=== PATIENT | male | born 1955 | race Caucasian/White ===

== ENCOUNTER 2016-11-30 06:36 | Day surgery (SDC) | payer BC, OTHER ==
[~2016-11-30] VITALS: Ht 172.7 cm; Wt 82.7 kg
[~2016-11-30 06:36] MED LIST: ASPIRIN 81M81 MG/TA2 PO; CARDI-OMEGA1000 MG PO; CRESTOR20 MG PO; NEXIUM 20MG CAP20 MG PO; NO HOME MEDICATIONS; NORCO 325 MG-51 TAB PO; PEPCID AC20 MG PO; PRILOSEC 20MG20 MG PO; STATIN; XANAX 0.5MG0.5 MG PO; [UNRECOGNIZED DRUG - OTHER]
[2016-11-30 07:08] VITALS: BP 122/73; PULSE 68; TEMP 97.6
[2016-11-30] MEDS ORDERED: ASPIRIN E.C. 8181 MG PO (07:11)
[2016-11-30] MEDS ORDERED: TEMOVATE OINT30 GM TOP (07:12)
[2016-11-30] MEDS ORDERED: PLAVIX 75MG TAB75 MG PO (07:12)
[2016-11-30 08:25] VITALS: BP 112/66; PULSE 64; TEMP 98
[2016-11-30 08:40] VITALS: BP 97/68; PULSE 62
[2016-11-30 08:55] VITALS: BP 108/64; PULSE 68
[2016-11-30 11:46] VITALS: BP 95/59; PULSE 52
== END 2016-11-30 09:01 | disposition home or self-care (01) ==
LOC: SDCO 06:36
DX: Z12.11 Encounter for screening for malignant neoplasm of colon (principal); D12.2 Benign neoplasm of ascending colon; D12.8 Benign neoplasm of rectum; K57.30 Diverticulosis of large intestine without perforation or abscess without bleeding; Z86.010 Personal history of colon polyps; K21.9 Gastro-esophageal reflux disease without esophagitis; E78.1 Pure hyperglyceridemia; Z79.02 Long term (current) use of antithrombotics/antiplatelets
CPT/HCPCS: J2250; J3010; J7030

== ENCOUNTER → 2018-07-31 | Outpatient (CLI) | payer BC, OTHER ==
[~2018-07-31] MED LIST changes: +ASPIRIN E.C. 8181 MG PO; +PLAVIX 75MG TAB75 MG PO; +TEMOVATE OINT30 GM TOP
== END ==
LOC: MC.RAD 10:27
DX: N63.10 Unspecified lump in the right breast, unspecified quadrant (principal); R92.8 Other abnormal and inconclusive findings on diagnostic imaging of breast

== ENCOUNTER → 2018-09-19 | Outpatient (CLI) | payer BC, OTHER ==
[~2018-09-19] VITALS: Ht 172.7 cm; Wt 85.6 kg
[2018-09-19] VITALS (10 sets, daily range): BP systolic 130–149; BP diastolic 77–92; PULSE 55–69
[2018-09-19 07:01] LABS: PROTHROMBIN TIME 10.9 SECONDS (9.7-12.8)
--- NOTE | 2018-09-19 08:35 | NUR ---
PT WAS TAKEN TO ULTRASOUND AND MONITORING EQUIPMENT PLACED ON PT. PT IS SB WITH OCCASSIONAL PVC.
--- NOTE | 2018-09-19 08:40 | NUR ---
PT WILMER WELL. TOLERATES PROCEDURE WELL.
--- NOTE | 2018-09-19 08:45 | NUR ---
PT DOING WELL. NO PAIN
--- NOTE | 2018-09-19 08:50 | NUR ---
PROCEDURE DONE. PT BROUGHT BACK TO ROOM. VS TAKEN.
--- NOTE | 2018-09-19 09:20 | NUR ---
PT DOING WELL
--- NOTE | 2018-09-19 09:20 | NUR ---
PT IS DOING WELL. IS GOING HOME AND WILL RETURN AT 1100. VSS. PT HAS ONLY TENDERNESS TO SITE, SITE HAS A SMALL AMT OF BLOOD ON BANDAIDE. PT GIVEN COFFEE. SPECIMEN TAKEN TO LAB
--- NOTE | 2018-09-19 09:50 | NUR ---
PT IS DOING WELL. SITE IS TENDER AND NO CHANGE IN BANDAIDE.
--- NOTE | 2018-09-19 10:20 | NUR ---
PT IS RESTING WITH HIS EYES CLOSED, RESP EVEN AND NON LABORED. COFFEE IS GONE.
--- NOTE | 2018-09-19 10:55 | NUR ---
PT AND WERE TAKEN TO LOBBY AND LFET IN V
== END ==
LOC: COL.RAD 06:07
DX: K21.9 Gastro-esophageal reflux disease without esophagitis (principal); K63.5 Polyp of colon; R74.8 Abnormal levels of other serum enzymes

== ENCOUNTER 2020-11-18 06:07 | Day surgery (SDC) | payer BC, OTHER ==
[~2020-11-18] VITALS: Ht 172.7 cm; Wt 84.8 kg
[~2020-11-18 06:07] MED LIST changes: +PROTONIX20 MG PO
[2020-11-18] MEDS ORDERED: NORVASC 10MG10 MG PO (06:29)
[2020-11-18 06:53] VITALS: BP 114/87; PULSE 74; TEMP 97.7
[2020-11-18 07:50] VITALS: BP 113/78; PULSE 63; TEMP 97.3
--- NOTE | 2020-11-18 07:50 | NUR ---
pt to bay [facility] via cart from [facility], pt walked to chair, gait stable. in room, call light in reach, pt had coffee and snack
[2020-11-18 08:05] VITALS: BP 133/81; PULSE 61
--- NOTE | 2020-11-18 08:05 | NUR ---
into see pt and
[2020-11-18 08:20] VITALS: BP 125/91; PULSE 62
--- NOTE | 2020-11-18 08:20 | NUR ---
reviewed discharge inst. with pt and on moderate sedaion, precautions, and polyp removal, iv d'cd intact. pt up in room dressed
--- NOTE | 2020-11-18 08:35 | NUR ---
pt discharged via w/c to car
== END 2020-11-18 08:35 | disposition home or self-care (01) ==
LOC: SDCO 06:07
DX: Z12.11 Encounter for screening for malignant neoplasm of colon (principal); Z86.010 Personal history of colon polyps; D12.2 Benign neoplasm of ascending colon; D12.8 Benign neoplasm of rectum; K57.30 Diverticulosis of large intestine without perforation or abscess without bleeding; K62.89 Other specified diseases of anus and rectum; Z79.82 Long term (current) use of aspirin; Z79.01 Long term (current) use of anticoagulants; I25.10 Atherosclerotic heart disease of native coronary artery without angina pectoris; Z95.5 Presence of coronary angioplasty implant and graft; I10 Essential (primary) hypertension; Z87.891 Personal history of nicotine dependence; K21.9 Gastro-esophageal reflux disease without esophagitis
CPT/HCPCS: J2704; J3010; J7030

== ENCOUNTER → 2021-02-02 | Outpatient (CLI) | payer BC, OTHER ==
[~2021-02-02] MED LIST changes: +NORVASC 10MG10 MG PO
== END ==
LOC: ZCOL.LAB 12:08
DX: R09.89 Other specified symptoms and signs involving the circulatory and respiratory systems (principal)

== ENCOUNTER 2022-02-22 10:49 | Emergency (ER) | payer BC, OTHER ==
[~2022-02-22] VITALS: Ht 172.7 cm; Wt 82.7 kg
[2022-02-22 11:09] VITALS: TEMP 98
[2022-02-22 11:37] LABS: BASO # 0.1 K/mm3 (0.0-0.2); BASO % 0.9 % (0.0-2.0); EOS # 0.4 K/mm3 (0.0-0.7); EOS % 3.7 % (0.0-4.0); HEMATOCRIT 46.5 % (42.0-52.0); HEMOGLOBIN 15.7 g/dl (13.5-18.0); LYMPH % 26.2 % (20.0-51.0); MEAN CELL VOLUME 92 fl (80.0-100.0); MEAN CORPUSCULAR HEMOGLOBIN 31 pg (27-31); MEAN CORPUSCULAR HGB CONC 34 g/dl (33.0-37.0); MEAN PLATELET VOLUME 8.1 fl (7.4-10.4); MONO # 0.9 K/mm3 (0.1-0.6); MONO % 7.8 % (1.7-9.3); PLATELET COUNT 374 K/mm3 (130-400); RED BLOOD COUNT 5.08 M/mm3 (4.20-5.60); REDCELL DISTRIBUTION WIDTH-CV 13.1 % (11.5-14.5)
[2022-02-22 11:47] LABS: INR 0.9 (0.8-3.0); PROTHROMBIN TIME 10.7 SECONDS (9.7-12.8)
[2022-02-22 11:50] LABS: PARTIAL THROMBOPLASTIN TIME 30.3 SECONDS (26.0-37.0)
[2022-02-22 11:56] LABS: ALANINE AMINOTRANSFERASE 57 U/L (0-55); ALKALINE PHOSPHATASE 158 U/L (40-150); ANION GAP 11 mmol/L (7-16); AST,SGOT 38 U/L (5-34); BILIRUBIN,TOTAL 0.9 mg/dL (0.2-1.2); BLOOD UREA NITROGEN 10 mg/dL (8-26); CALCIUM 8.9 mg/dL (8.4-10.2); CARBON DIOXIDE 22 mmol/L (23-31); CHLORIDE 106 mmol/L (98-107); CREATININE, serum 1.15 mg/dL (0.72-1.25); GLUCOSE 112 mg/dL (70-99); LIPASE 14 U/L (8-78); POTASSIUM 3.8 mmol/L (3.5-4.5); SODIUM 139 mmol/L (136-145); TOTAL PROTEIN 7.1 gm/dL (6.2-8.1)
[2022-02-22 12:10] LABS: TROPONIN-I < 0.010 ng/mL (0.00-0.033)
[2022-02-22 12:24] LABS: D-DIMER < 200.00 ng/mLDDu (200-230)
[2022-02-22] MEDS ORDERED: PROTONIX 40MG T40 MG PO (14:44)
[2022-02-22] MEDS ORDERED: NORCO 325 MG-51 TAB PO (14:44)
[2022-02-22] MEDS ORDERED: ZOFRAN ODT4 MG PO (14:44)
[2022-02-22 15:31] VITALS: BP 122/83; PULSE 71
== END 2022-02-22 15:31 | disposition home or self-care (01) ==
LOC: COL.ER 10:49
PROVIDERS: Emergency Medicine
DX: M54.9 Dorsalgia, unspecified (principal); R10.32 Left lower quadrant pain; R10.12 Left upper quadrant pain; R74.01 Elevation of levels of liver transaminase levels; F17.210 Nicotine dependence, cigarettes, uncomplicated; Z28.310 Unvaccinated for COVID-19
CPT/HCPCS: J1885; J2270; J2405

== ENCOUNTER 2024-03-06 09:23 | Day surgery (SDC) | payer BC, MEDICARE, OTHER ==
[~2024-03-06] VITALS: Ht 170.2 cm; Wt 85.5 kg
[~2024-03-06 09:23] MED LIST changes: +LR 1,000 ML IV SCH; +Ondansetron 4 MG/2 ML VIAL IV PRN; +PROTONIX 40MG T40 MG PO; +ZOFRAN ODT4 MG PO
[2024-03-06] MEDS ORDERED: REPATHA SU140 MG/1 M SQ (10:00)
[2024-03-06] MEDS ORDERED: CELEBREX 1100 MG/CAP PO (10:00)
[2024-03-06 10:20] VITALS: BP 114/70; PULSE 84; TEMP 97.4
[2024-03-06 11:35] VITALS: BP 93/73; PULSE 68; TEMP 97.1
[2024-03-06 11:50] VITALS: BP 102/79; PULSE 64
--- NOTE | 2024-03-06 12:05 | NUR ---
1135 RETURNS TO ROOM 8 PER CART. AWAKE, ALERT. RESP UNLABORED. AMBULATES TO RECLINER WITH STANDBY ASSIST. DENIES NAUSEA OR ABD PAIN. VITAL SIGNS OBTAINED. CALL LIGHT AT SIDE. 1140 DR. HEWITT HERE TO VISIT WITH PATIENT. 1145 TOLERATES PO WATER AND MUFFIN WITHOUT NAUSEA. DISCHARGE INSTRUCTIONS REVIEWED. PATIENT VERBALIZES UNDERSTANDING. COPY PROVIDED IN DISCHARGE FOLDER 1155 DRESSES SELF
== END 2024-03-06 12:05 | disposition home or self-care (01) ==
LOC: SDCO 09:23
DX: Z12.11 Encounter for screening for malignant neoplasm of colon (principal); D12.3 Benign neoplasm of transverse colon; K64.0 First degree hemorrhoids; K62.89 Other specified diseases of anus and rectum; K57.30 Diverticulosis of large intestine without perforation or abscess without bleeding; Z87.891 Personal history of nicotine dependence
CPT/HCPCS: J2704; J7120